=== PATIENT | male | born 1985 | race African-American/Black ===

== ENCOUNTER 2018-07-14 17:02 | Inpatient (IN) | payer OTHER ==
[~2018-07-14] VITALS: Ht 172.7 cm; Wt 83.9 kg
--- NOTE | 2018-07-14 17:02 | NUR ---
[id number] FOR ABDOMIANL PAIN AND DISTENSION X 3 DAYS. ILEOSTOMY NOT DRAINING. TO ER BED 1, CHAGED TO GOWN, HOOKED TO MONITOR, RT AT BEDSIDE, AWAITING MD VALLE
--- NOTE | 2018-07-14 17:16 | NUR ---
CALLED NURSING CALLED REQUESTING PICC LINE
[2018-07-14 17:19] VITALS: BP 137/74
--- NOTE | 2018-07-14 17:20 | NUR ---
PT. RECEIVED AND PLACED INTO [address] [place] [address] VENT VIA TRACH SIZE 8 BIVONA (CUFFLESS), PARAMETERS BELOW PER PRIVATE CAREGIVER: AC 16 VT 500ML FIO2 28% PEEP 0 BREATH SOUNDS COARSE RHONCHI BILATERAL. VENT ALARMS IS ON AND FUNCTIONING WITH KARONG @ BEDSIDE.. Addendum: 07/14/18 at 1753 by CHINO HERNANDEZ RT Amended: Links added.
--- NOTE | 2018-07-14 17:21 | NUR ---
MIKAELA SEXTON AT BEDSIDE
[2018-07-14] MEDS ORDERED: ONDANSETRON HCL/PF 4 MG/2 ML VIAL IVP ONE (17:30)
[2018-07-14] MEDS ORDERED: IV NS 0.9% 500 ML BAG IV ONE (17:30)
[2018-07-14] MEDS ORDERED: HYDROMORPHONE INJ 2 MG/ML DISP.SYRIN IV ONE (17:30)
[2018-07-14] MEDS ORDERED: GABA-532 GT (17:33)
[2018-07-14] MEDS ORDERED: IPRA3AMP23 IH (17:33)
[2018-07-14] MEDS ORDERED: GABA-534 GT (17:33)
[2018-07-14] MEDS ORDERED: SIME80TA15 GT ×2 (17:33)
[2018-07-14] MEDS ORDERED: POTA20PA34 GT (17:33)
[2018-07-14] MEDS ORDERED: MAGN296S44 GT (17:33)
[2018-07-14] MEDS ORDERED: ACET-868 GT (17:33)
[2018-07-14] MEDS ORDERED: DIGO250T GT (17:33)
[2018-07-14] MEDS ORDERED: MAG30ORA GT (17:33)
[2018-07-14] MEDS ORDERED: POLY17PO4 GT (17:33)
[2018-07-14] MEDS ORDERED: BISA10SU8 PR (17:33)
[2018-07-14] MEDS ORDERED: ACID1TAB12 GT (17:33)
[2018-07-14] MEDS ORDERED: DOCU50LI GT (17:33)
[2018-07-14] MEDS ORDERED: METO5SOL GT (17:33)
[2018-07-14] MEDS ORDERED: SUCR1ORA4 GT (17:33)
[2018-07-14] MEDS ORDERED: CLON0.5T GT (17:33)
[2018-07-14] MEDS ORDERED: NA P133E RC (17:33)
[2018-07-14] MEDS ORDERED: DIPH50CA4 GT (17:33)
[2018-07-14] MEDS ORDERED: LORA10TA68 GT (17:33)
[2018-07-14] MEDS ORDERED: MAGN400O6 GT (17:33)
[2018-07-14] MEDS ORDERED: LACT-209 GT (17:33)
[2018-07-14] MEDS ORDERED: BACL10TA GT (17:33)
[2018-07-14] MEDS ORDERED: PROM50TA5 GT (17:33)
[2018-07-14] MEDS ORDERED: METO25TA20 GT (17:33)
[2018-07-14] MEDS ORDERED: HALO5TAB8 GT (17:33)
[2018-07-14] MEDS ORDERED: DILT30TA14 GT (17:33)
[2018-07-14] MEDS ORDERED: ONDANSETRON HCL/PF 4 MG/2 ML VIAL ONE ×2 (17:49→19:56)
[2018-07-14] MEDS ORDERED: HYDROMORPHONE INJ 0.5 MG/0.5 ML SYRINGE ONE (17:49)
[2018-07-14 18:08] LABS: BASOPHILS % (AUTO) 0.2 % (0.0-2.0); EOSINOPHILS % (AUTO) 0.1 % (0.0-6.0); HEMATOCRIT 47 % (39-51); HEMOGLOBIN 15.2 g/dL (13.5-17.5); LYMPHOCYTES # (AUTO) 1.7 /CMM (0.8-4.8); LYMPHOCYTES % (AUTO) 7.7 % (20.0-44.0); MEAN CORPUSCULAR HGB CONC 33 g/dl (31.0-36.0); MEAN CORPUSCULAR VOLUME 89 fL (80-96); MONOCYTES # (AUTO) 0.8 /CMM (0.1-1.30); MONOCYTES % (AUTO) 3.8 % (2.0-12.0); NEUTROPHILS # (AUTO) 19.2 /CMM (1.8-8.9); NEUTROPHILS % (AUTO) 88.2 % (43.0-81.0); PLATELET COUNT (AUTO) 402 /CMM (150-450); RED BLOOD CELL COUNT(AUTO) 5.26 MIL/uL (4.5-6.0); WHITE BLOOD COUNT (AUTO) 21.7 K/uL (4.3-11.0)
[2018-07-14 18:14] LABS: APPEARANCE,URINE Slightly Cloudy (CLEAR); BILIRUBIN,URINE Negative (NEGATIVE); BLOOD, URINE Trace-lysed Ery/uL (NEGATIVE); COLOR,URINE Yellow (YELLOW); KETONES,URINE Trace (NEGATIVE); LEUKOCYTE ESTERASE ,URINE Large (NEGATIVE); NITRITE, URINE Negative (NEGATIVE); PH,URINE 8.5 (5.0-8.0); PROTEIN,URINE 100 mg/dl (NEGATIVE); UGLUCOSE Negative (NEGATIVE); UROBILINOGEN,URINE 0.2 EU/dL (0.2)
[2018-07-14 18:15] LABS: CREATININE 0.3 mg/dL (0.6-1.3); POTASSIUM 5.9 mmol/L (3.5-5.1)
[2018-07-14 18:21] LABS: ALBUMIN 4.4 g/dL (3.4-5.0); BILIRUBIN,DIRECT 0.1 mg/dL (0.0-0.2); BILIRUBIN,TOTAL 0.8 mg/dL (0.2-1.0); TOTAL PROTEIN, SERUM 10.7 g/dL (6.4-8.2)
[2018-07-14 18:27] LABS: BACTERIA,URINE Moderate /HPF (None Seen); MUCUS,URINE Moderate /LPF (None Seen); SQUAMOUS EPITHELIAL CELL,UR Moderate /HPF (None Seen); WBC,URINE 21-50 /HPF (0-3)
[2018-07-14] MEDS ORDERED: SODIUM POLYSTYRENE SULFONATE 15 G/60 ML BOTTLE PO ONE (18:30)
[2018-07-14] MEDS ORDERED: SODIUM POLYSTYRENE SULFONATE 15 G/60 ML BOTTLE ONE ×2 (18:35→18:39)
[2018-07-14] MEDS ORDERED: IV NS 0.9% 1,000 ML BAG IV ONE (19:00)
[2018-07-14] MEDS ORDERED: PIPERACILLIN /TAZOBACTAM 3.375 G in IV D5W 50 ML IV ONE (19:00)
--- NOTE | 2018-07-14 19:28 | NUR ---
REPORT GIVEN TO ENRIKE GUADARRAMA FOR MARY
--- NOTE | 2018-07-14 19:45 | NUR ---
Pt feeling nausea, unrelieved from medication.
--- NOTE | 2018-07-14 20:00 | NUR ---
Pt having nausea, Pt vomitted x 2 times. ER PA aware.
--- NOTE | 2018-07-14 20:15 | NUR ---
Pt having nausea, Pt vomitted x 2 times. ER PA aware.
--- NOTE | 2018-07-14 20:35 | NUR ---
Pt taken to CT.
--- NOTE | 2018-07-14 20:50 | NUR ---
Pt returned from CT. Pt being monitored.
--- NOTE | 2018-07-14 20:55 | NUR ---
Consent obtained for PICC LINE.
--- NOTE | 2018-07-14 21:00 | NUR ---
PICC line nurse at bedside for PICC line insertion.
[2018-07-14 21:05] VITALS: BP 174/124
--- NOTE | 2018-07-14 21:05 | NUR ---
3200 ml output from the NG tube, while being attached to the intermittent suction
--- NOTE | 2018-07-14 21:45 | NUR ---
NG tube Placement 16FR at 63 cm.
[2018-07-14] MEDS ORDERED: ACETAMINOPHEN 325 MG TABLET PO PRN (22:00)
[2018-07-14] MEDS ORDERED: HYDROCODONE/APAP 5/325MG 1 EACH TABLET PO PRN (22:00)
[2018-07-14] MEDS ORDERED: ONDANSETRON HCL/PF 4 MG/2 ML VIAL IVP PRN (22:00)
[2018-07-14] MEDS ORDERED: Z GUARD REMEDY 2 OZ OINT TP PRN (22:00)
[2018-07-14] MEDS ORDERED: ZOLPIDEM TARTRATE 5 MG TABLET PO PRN (22:00)
--- NOTE | 2018-07-14 22:00 | NUR ---
PICC Line inserted in L brachial at 40cm.
--- NOTE | 2018-07-14 22:15 | NUR ---
Xray at bedside for picc line insertions and ng-tube placement on confirmation.
--- NOTE | 2018-07-14 22:45 | NUR ---
Surgeon at bedside to eval colostomy bag, and eviseration of the bowel.
--- NOTE | 2018-07-14 23:15 | NUR ---
Pt being monitored. NAD NOTED.
--- NOTE | 2018-07-14 23:35 | NUR ---
Report given to Myrna GUADARRAMA JOSEY for MARY.
[2018-07-15] VITALS: BP 161/101
--- NOTE | 2018-07-15 | NUR ---
RN NOTES RECEIVED PATIENT ON GURNEY , A/A/OX4. TRACH DEPENDANT WITH SPO2 OF 100%. PT PLACED ON FINANCE BUSINESS MANAGER AND ST. IV LINE ON LEFT UPPER ARM PICC LINE IS PATIENT , INTACT WITH IV FLUIDS ORDERED. MARIE CATHETER IN PLACE WITH YELLOW CLEAR URINE. RIGHT SIDE ILEOSTOMY NOTED AND PROTRUDING. G TUBE IN PLACE CLAMPED. LEFT NARES NGT IN PLACE ON LOW INTERMITTENT SUCTION. PATIENT IS NPO. PT COMPLAINS OF PAIN IN BOTH LEGS. SKIN ASSESSMENT IS DONE, NO SOB NOTES AT THIS TIME. WILL CONTINUE TO MONITOR PATIENT CLOSELY.
--- NOTE | 2018-07-15 00:05 | NUR ---
RN NOTES STAT CBC RESULTS ARE READY AND KATHRINE NOTIFIED. REPEAT CBC WILL BE ORDERED AT 0200 BY DELGADO.
[2018-07-15] MEDS ORDERED: PIPERACILLIN /TAZOBACTAM 3.375 G in IV D5W 50 ML IV SCH (01:00)
[2018-07-15] MEDS ORDERED: NS 0.9% IV ONE (01:30)
[2018-07-15] MEDS ORDERED: VANCOMYCIN IV ONE (01:30)
[2018-07-15] MEDS ORDERED: PIPERACILLIN /TAZOBACTAM 3.375 G VIAL IV ONE ×2 (01:55→06:31)
[2018-07-15] MEDS: PIPERACILLIN /TAZOBACTAM 3.375 G in IV D5W 50 ML IV SCH ×2 (02:02→06:42)
[2018-07-15] MEDS: HYDROMORPHONE 1 MG/1 ML DISP.SYRIN IV PRN ×3 (02:03→21:43)
[2018-07-15] MEDS ORDERED: VANCOMYCIN 1 GM VIAL ONE (02:15)
[2018-07-15] MEDS ORDERED: VANCOMYCIN 1.25 GM in IV D5W 250 ML IV ONE (03:00)
[2018-07-15 04:00] VITALS: BP 103/50
[2018-07-15 07:06] LABS: BASOPHILS % (AUTO) 0.1 % (0.0-2.0); EOSINOPHILS % (AUTO) 0.1 % (0.0-6.0); HEMATOCRIT 34 % (39-51); HEMOGLOBIN 11.1 g/dL (13.5-17.5); LYMPHOCYTES # (AUTO) 1.1 /CMM (0.8-4.8); LYMPHOCYTES % (AUTO) 9.6 % (20.0-44.0); MEAN CORPUSCULAR HGB CONC 33 g/dl (31.0-36.0); MEAN CORPUSCULAR VOLUME 88 fL (80-96); MONOCYTES # (AUTO) 0.9 /CMM (0.1-1.30); MONOCYTES % (AUTO) 7.8 % (2.0-12.0); NEUTROPHILS # (AUTO) 9.5 /CMM (1.8-8.9); NEUTROPHILS % (AUTO) 82.4 % (43.0-81.0); PLATELET COUNT (AUTO) 273 /CMM (150-450); RED BLOOD CELL COUNT(AUTO) 3.86 MIL/uL (4.5-6.0); WHITE BLOOD COUNT (AUTO) 11.6 K/uL (4.3-11.0)
--- NOTE | 2018-07-15 07:10 | NUR ---
RN INITIAL NOTES RECEIVED PT AWAKE, A/OX 2-3. TRACH IN PLACE. TOLERATING VENT WELL. NO RESPIRATORY DISTRESS NOTED. NO SOB NOTED. DENIES ANY PAIN. HOB ELEVATED. NGT, LEFT NARE, CONNECTED TO LOW INTERMITTENT SUCTION. BERNA PICC IN PLACE. IVF INFUSING. WITH RIGHT ILEOSTOMY, BAG INTACT. FC IN PLACE. NO HEMATURIA NOTED. PT COMFORTABLE. WILL CONTINUE TO MONITOR.
[2018-07-15 07:18] LABS: CALCIUM, SERUM 8.8 mg/dL (8.5-10.1); CREATININE 0.3 mg/dL (0.6-1.3); MAGNESIUM 2.1 mg/dL (1.8-2.4); PHOSPHORUS 3.8 mg/dL (2.5-4.9)
[2018-07-15 07:30] LABS: POTASSIUM 2.7 mmol/L (3.5-5.1)
--- NOTE | 2018-07-15 07:50 | NUR ---
RT NOTE PT REC'D TRACHED VIA BIVONA 6 [facility]DE. ALTHOUGH TRACH IS CUFFLESS PT STILL ABLE TO MAINTAIN ADEQUATE TIDAL VOLUME. PT ALERT AND AWAKE. NO RESP DISTRESS OR SOB NOTED. SX'D FOR SMALL AMT OF CLEAR SECRETIONS. ALARMS ARE SET AND AUDIBLE. VENT PLUGGED INTO RED OUTLET. AMBU BAG BEDSIDE. WILL CONTINUE TO MONITOR Addendum: 07/15/18 at 1317 by MOISE REDDY RT Amended: Links added.
[2018-07-15 08:00] VITALS: BP 115/56
[2018-07-15] MEDS ORDERED: FEE PK DOSING 1 MIN EA MC ONE (08:49)
[2018-07-15] MEDS: POTASSIUM CL. PREMIX PERIPHER. 50 ML IV SCH ×4 (09:35→12:56)
--- NOTE | 2018-07-15 10:09 | NUR ---
WOUND CARE CONSULT: PT PRESENTS WITH PROLAPSED ILEOSTOMY. PT FOLLOWED BY SURGICAL TEAM. ALL SKIN PROTECTION RECOMMENDATIONS DISCUSSED WITH NURSING STAFF. WILL SEE PRN. CURRENT CHRIS SCORE IS 12. FIRST STEP LOW AIRLOSS MATTRESS ORDERED. MD IN AGREEMENT WITH PLAN OF CARE.
[2018-07-15] MEDS: PIPERACILLIN /TAZOBACTAM 3.375 G in IV D5W 100 ML IV SCH ×2 (11:19→20:28)
[2018-07-15 12:00] VITALS: BP 123/85
[2018-07-15] MEDS: VANCOMYCIN 1 GM in IV D5W 250 ML IV SCH ×2 (12:25→21:43)
--- NOTE | 2018-07-15 13:25 | NUR ---
RN NOTES SEEN AND EXAMINED BY SATYA GARCIA NP.PT A/O. PT ON VENT. NO RESPIRATORY DISTRESS NOTED. NURSE TECHNICIAN AWARE OF CURRENT LAB VALUES. POTASSIUM 2.7, REPLACED. AWARE OF HGBA1C 6.5. ALSO AWARE OF CXR RESULT. WILL MONITOR.
[2018-07-15] MEDS: IV NS 0.9% 1,000 ML IV PRN (13:50)
[2018-07-15] MEDS ORDERED: DEXTROSE 50%-WATER 50 ML DISP.SYRIN IV PRN (14:30)
[2018-07-15 16:00] VITALS: BP 121/64
--- NOTE | 2018-07-15 16:00 | NUR ---
RN NOTES SEEN AND EXAMINED BY BREANNA SPAULDING. ASSESSED ILEOSTOMY PROLAPSE. PT NGT IN PLACE, CONNECTED TO LOW INTERMITTENT SUCTION. GREENISH OUTPUT NOTED, 300ML. ABDOMINAL DISTENTION STILL NOTED. PER SKIAGRAPHER, HOLD NGT SUCTION FOR 4HRS. IF OUTPUT IS LESS THAN 150ML, REMOVE NGT AND START ON LIQUID DIET. IF OUTPUT IS MORE THAN 150ML, RESUME LOW INTERMITTENT SUCTION. PT AWARE. WILL MONITOR
--- NOTE | 2018-07-15 16:36 | NUR ---
Spoke with Ana [phone]- director of the [facility]. [phone] address: [address] [place] [address]. He has family/siblings out of state. Ana is the primary contact for the patient. He is trach/vent dependent and has hx of Duchenne's muscular dystrophy. He is confined to chair or bed most of the time. He requires max to total assist with adl's. Has adequate DME: trach/vent & GT care supplies, ileostomy care supplies,hosp bed, O2. Ana will accept patient back when discharge. Addendum: 07/15/18 at 1636 by IMER CALABRESE RN Amended: Links added.
[2018-07-15] MEDS: BLOOD SUGAR DIAGNOSTIC 1 EACH STRIP IN SCH (17:25)
--- NOTE | 2018-07-15 18:27 | NUR ---
RN CLOSING NOTES NO SIGNIFICANT CHANGE NOTED. PT REMAINS ON CENT, TRACH IN PLACE. KEPT HOB ELEVATED. DENIES ANY PAIN. NGT IN PLACE, CLAMPED. PICC IN PLACE. IVF INFUSING. RIGHT ILEOSTOMY BAG IN PLACE. FC IN PLACE. PT KEPT CLEAN AND DRY. REPOSITIONED Q2. BLE ELEVATED. WILL ENDORSE FOR CONTINUITY OF CARE.
[2018-07-15 20:00] VITALS: BP 130/70
--- NOTE | 2018-07-15 20:00 | NUR ---
RN NOTES RECEIVED PATIENT REPORT FROM AM NURSE. PATIENT IS IN BED , A/A/OX4, ON TRACH TOLERATING SETTINGS WELL. HOB ELEVATED AT ALL TIMES. COMPLAINS OF 8/10 BOTH LEGS PAIN. NGT IN PLACE, CLAMPED, WILL RESTART LOW INTERMITTENT SUCTIONING AT 2000, PICC IN PLACE. IVF INFUSING. G TUBE IN PLACE CLAMPED. PATIENT IS ON BODY LINE FINISHER ST. RIGHT ILEOSTOMY BAG IN PLACE. FC IN PLACE. BLE ELEVATED. WILL CONTINUE TO MONITOR PATIENT CLOSELY.
[2018-07-15 22:44] LABS: BASOPHILS % (AUTO) 0.1 % (0.0-2.0); EOSINOPHILS % (AUTO) 0.5 % (0.0-6.0); HEMATOCRIT 34 % (39-51); HEMOGLOBIN 11.2 g/dL (13.5-17.5); LYMPHOCYTES # (AUTO) 0.5 /CMM (0.8-4.8); LYMPHOCYTES % (AUTO) 4.1 % (20.0-44.0); MEAN CORPUSCULAR HGB CONC 33 g/dl (31.0-36.0); MEAN CORPUSCULAR VOLUME 88 fL (80-96); MONOCYTES # (AUTO) 1.6 /CMM (0.1-1.30); MONOCYTES % (AUTO) 12.4 % (2.0-12.0); NEUTROPHILS # (AUTO) 10.3 /CMM (1.8-8.9); NEUTROPHILS % (AUTO) 82.9 % (43.0-81.0); PLATELET COUNT (AUTO) 223 /CMM (150-450); RED BLOOD CELL COUNT(AUTO) 3.91 MIL/uL (4.5-6.0); WHITE BLOOD COUNT (AUTO) 12.5 K/uL (4.3-11.0)
--- NOTE | 2018-07-15 23:10 | NUR ---
RN NOTES PATIENT INTERMITTENT SUCTIONED SECRETIONS ARE COFFEE GROUNDED 300ML OUT SINCE 1999 AND HR IS 126. PATIENT IS A/A/O X4. CALLED KATHRINE TO NOTIFY AND STAT CBC ORDERED FOR NOW. WILL CONT. TO MONITOR PATIENT CLOSELY.
[2018-07-16] VITALS (12 sets, daily range): BP systolic 105–135; BP diastolic 45–72
[2018-07-16] MEDS: BLOOD SUGAR DIAGNOSTIC 1 EACH STRIP IN SCH ×4 (01:06→17:14)
[2018-07-16] MEDS: HYDROMORPHONE 1 MG/1 ML DISP.SYRIN IV PRN ×6 (02:07→23:31)
[2018-07-16 02:20] LABS: BASOPHILS # (AUTO) 0.1 /CMM (0.0-0.2); BASOPHILS % (AUTO) 0.5 % (0.0-2.0); EOSINOPHILS % (AUTO) 0.4 % (0.0-6.0); HEMATOCRIT 33 % (39-51); HEMOGLOBIN 10.9 g/dL (13.5-17.5); LYMPHOCYTES % (AUTO) 7.7 % (20.0-44.0); MEAN CORPUSCULAR HGB CONC 33 g/dl (31.0-36.0); MEAN CORPUSCULAR VOLUME 88 fL (80-96); MONOCYTES # (AUTO) 1.8 /CMM (0.1-1.30); MONOCYTES % (AUTO) 14.7 % (2.0-12.0); NEUTROPHILS # (AUTO) 9.7 /CMM (1.8-8.9); NEUTROPHILS % (AUTO) 76.7 % (43.0-81.0); PLATELET COUNT (AUTO) 238 /CMM (150-450); RED BLOOD CELL COUNT(AUTO) 3.79 MIL/uL (4.5-6.0); WHITE BLOOD COUNT (AUTO) 12.6 K/uL (4.3-11.0)
[2018-07-16 03:25] LABS: BASOPHILS # (AUTO) 0.1 /CMM (0.0-0.2); BASOPHILS % (AUTO) 0.4 % (0.0-2.0); EOSINOPHILS % (AUTO) 0.6 % (0.0-6.0); HEMATOCRIT 33 % (39-51); HEMOGLOBIN 10.6 g/dL (13.5-17.5); LYMPHOCYTES # (AUTO) 0.9 /CMM (0.8-4.8); LYMPHOCYTES % (AUTO) 7.9 % (20.0-44.0); MEAN CORPUSCULAR HGB CONC 32 g/dl (31.0-36.0); MEAN CORPUSCULAR VOLUME 88 fL (80-96); MONOCYTES # (AUTO) 1.6 /CMM (0.1-1.30); MONOCYTES % (AUTO) 13.1 % (2.0-12.0); NEUTROPHILS # (AUTO) 9.3 /CMM (1.8-8.9); PLATELET COUNT (AUTO) 231 /CMM (150-450); RED BLOOD CELL COUNT(AUTO) 3.74 MIL/uL (4.5-6.0)
[2018-07-16 03:35] LABS: CREATININE 0.3 mg/dL (0.6-1.3)
[2018-07-16] MEDS: IV NS 0.9% 1,000 ML IV PRN ×2 (04:35→23:31)
[2018-07-16] MEDS: PIPERACILLIN /TAZOBACTAM 3.375 G in IV D5W 100 ML IV SCH ×3 (04:36→20:50)
[2018-07-16] MEDS: VANCOMYCIN 1 GM in IV D5W 250 ML IV SCH (05:00)
--- NOTE | 2018-07-16 05:04 | NUR ---
RN NOTES VANCO TROUGH IS 49 AND I WILL BE HOLDING VANCOMYCIN SCHEDULED AT 0500.
--- NOTE | 2018-07-16 06:34 | NUR ---
RN NOTES GOT A CALL FROM LAB. 1 UNIT OF pRBC IS READY FOR transfusion.
--- NOTE | 2018-07-16 07:00 | NUR ---
RN NOTES GOT A CALL FROM SURGERY ABOUT PATIENT BEING READY FOR HD CATH PLACEMENT AND HAS BEEN INFORMED THAT PATIENT DIDN'T AL CONSENT FORMS FOR PROCEDURE AND SAID " NO ONE CAME TO TALK TO ME ABOUT THIS PROCEDURE AND I HAVE NO IDEA WHY I AM HAVING HD CATH PLACEMENT". SURGERY SAID THAT ONCE DOCTOR COMES HE WILL COME AND TALK TO THE PATIENT. AM STRAND BUNCHER FINE WIRE ANN AND PM STRAND BUNCHER FINE WIRE JANETTE NOTIFIED. CALLED MD YEBOAH WITH NO ANSWER. WILL ENDORSE TO THE AM RN FOR INSURANCE CLAIM AUDITOR. Addendum: 07/16/18 at 0741 by MIGUE CASTILLO RN DISREGARD THIS NOTE , WRONG PATIENT.
--- NOTE | 2018-07-16 07:05 | NUR ---
RN NOTES RECEIVED PATIENT ON BED , A/OX4, VENT/TRACH DEPENDENT, TOLERATING CURRENT VENT SETTINGS WELL. HOB ELEVATED AT ALL TIMES. NO SOB NOTED, ON TELE ST, HR IN 110'S , NGT IN PLACE TO LIS , WITH SMALL AMOUNT OF LIGHT BLOODY DRAINAGE , GT CLAMPED AT THIS TIME, MARIE DRAINING TO GRAVITY , PT IS NPO, L UPPER ARM PICC LINE SITE CLEAN,DRY AND INTACT, WITH NS AT 100CC/HR RUINING , RIGHT ILEOSTOMY BAG IN PLACE. SR UP x3, CALL LIGHT WITHIN EASY REACH, BED LOCKED AND IN LOWEST POSITION .
[2018-07-16] MEDS: PANTOPRAZOLE 40 MG VIAL IV SCH ×2 (08:44→20:51)
[2018-07-16] MEDS: POTASSIUM CL. PREMIX PERIPHER. 50 ML IV SCH ×6 (11:46→17:15)
--- NOTE | 2018-07-16 12:00 | NUR ---
RN NOTES ONE UNIT OF PRBC INFUSED , PT TOLERATED WELL, NO COMPLICATION NOTED .
--- NOTE | 2018-07-16 18:00 | NUR ---
RN NOTES PT REMAINS THE SAME , NO SIGNIFICANT CHANGES NOTED ON THIS SHIFT, GT STILL CLAMP , NGT CONNECTED TO LIS , WITH 350 CC BLOODY STOMACH FLUID DRINING , AWARE , SR UP x3, CALL LIGHT WITHIN EASY REACH , BED LOCKED AND IN LOWEST POSITION, CONTINUE TO MONITOR .
--- NOTE | 2018-07-16 20:00 | NUR ---
RN NOTES RECEIVED PATIENT ON BED , A/OX4, VENT/TRACH DEPENDENT, TOLERATING CURRENT VENT SETTINGS WELL. HOB ELEVATED AT ALL TIMES. NO SOB NOTED, ON TELE ST, HR IN 110'S , NGT IN PLACE TO LIS , WITH SMALL AMOUNT OF BLOODY DRAINAGE , GT CLAMPED AT THIS TIME, MARIE DRAINING TO GRAVITY , PT IS NPO, L UPPER ARM PICC LINE SITE CLEAN,DRY AND INTACT, WITH NS AT 100CC/HR RUINING , RIGHT ILEOSTOMY BAG IN PLACE. PATIENT IS COMPLAINING OF PAIN 6/10 AT THIS TIME. SR UP x3, CALL LIGHT WITHIN EASY REACH, BED LOCKED AND IN LOWEST POSITION .
[2018-07-16] MEDS ORDERED: VANCOMYCIN 0.75 GM in IV D5W 250 ML IV SCH (21:00)
[2018-07-17] VITALS: BP 135/68
[2018-07-17] MEDS: BLOOD SUGAR DIAGNOSTIC 1 EACH STRIP IN SCH ×4 (00:20→19:11)
[2018-07-17] MEDS: HYDROMORPHONE 1 MG/1 ML DISP.SYRIN IV PRN ×5 (02:34→21:45)
--- NOTE | 2018-07-17 03:00 | NUR ---
RN NOTES STILL NGT IS CONNECTED TO LIS AND DRAINING DARK BLOODY SECRETIONS .
[2018-07-17 04:00] VITALS: BP 121/47
[2018-07-17] MEDS: PIPERACILLIN /TAZOBACTAM 3.375 G in IV D5W 100 ML IV SCH ×2 (04:50→11:56)
--- NOTE | 2018-07-17 07:30 | NUR ---
TOWER WATCHMAN OPENING NOTES RECEIVED BEDSIDE REPORT. PATIENT A/O X4 AWAKE IN BED. ON VENT TOLERATING SETTINGS WITH SIGNS OR SYMPTOMS OF RESPIRATROY DISTRESS OR ACUTE PAIN AT THIS TIME. SINUS TACH IN 100'S ON MONITOR. MARIE CATH DRAINING CLEAR YELLOW URINE NG TUBE ON CONT SUCTION WITH MODERATE DRAINAGE GT CLAMPED. BERNA RUNNING 9% NS @ 100 ML/HR. RIGHT THUMB # 24 SL. SAFETY PRECAUTIONS IN PLACE BED IN LOW POSITION CALL LIGHT WITHIN REACH WILL CONT TO MONITOR
[2018-07-17 07:53] LABS: BASOPHILS # (AUTO) 0.1 /CMM (0.0-0.2); BASOPHILS % (AUTO) 0.4 % (0.0-2.0); EOSINOPHILS % (AUTO) 0.8 % (0.0-6.0); HEMATOCRIT 35 % (39-51); HEMOGLOBIN 10.9 g/dL (13.5-17.5); LYMPHOCYTES # (AUTO) 0.9 /CMM (0.8-4.8); LYMPHOCYTES % (AUTO) 7.3 % (20.0-44.0); MEAN CORPUSCULAR HGB CONC 32 g/dl (31.0-36.0); MEAN CORPUSCULAR VOLUME 90 fL (80-96); MONOCYTES # (AUTO) 1.1 /CMM (0.1-1.30); MONOCYTES % (AUTO) 9.1 % (2.0-12.0); NEUTROPHILS # (AUTO) 10.1 /CMM (1.8-8.9); NEUTROPHILS % (AUTO) 82.4 % (43.0-81.0); PLATELET COUNT (AUTO) 197 /CMM (150-450); RED BLOOD CELL COUNT(AUTO) 3.84 MIL/uL (4.5-6.0); WHITE BLOOD COUNT (AUTO) 12.3 K/uL (4.3-11.0)
[2018-07-17 08:00] VITALS: BP 129/49
[2018-07-17 08:15] LABS: CALCIUM, SERUM 7.5 mg/dL (8.5-10.1); CREATININE 0.4 mg/dL (0.6-1.3); MAGNESIUM 2.2 mg/dL (1.8-2.4); PHOSPHORUS 4.6 mg/dL (2.5-4.9)
[2018-07-17] MEDS ORDERED: ALTEPLASE CATHFLO 2 MG/VIAL XX ONE ×2 (08:30)
[2018-07-17] MEDS: PANTOPRAZOLE 40 MG VIAL IV SCH ×2 (08:40→21:12)
[2018-07-17 12:00] VITALS: BP 124/69
--- NOTE | 2018-07-17 15:30 | NUR ---
REHAB OFFICE COORDINATOR NOTES TRANSPORTED PATIENT TO CT WITH RT
[2018-07-17] MEDS ORDERED: DIATR MEGLU/DIATRIZOATE SODIUM 120 ML BOTTLE (GASTROGRAPHIN) ONE ×2 (15:33→16:16)
[2018-07-17 16:00] VITALS: BP_SYST 105; BP_SYST 137; BP_DIAS 44; BP_DIAS 52
--- NOTE | 2018-07-17 18:00 | NUR ---
WIRELESS TELEGRAPHER NOTES PATIENT RETURNED FROM CT
--- NOTE | 2018-07-17 19:19 | NUR ---
APPLIANCE REPAIRER NOTES NEW PICC LINE INSERTED DOUBLE LUMEN (L) BRACHIAL WAITING FOR X RAY TO CONFIRM PLACEMENT
--- NOTE | 2018-07-17 19:49 | NUR ---
SENIOR STRATEGY MANAGER NOTES REPORT GIVEN TO PIETER. A/O X4 NO SOB CHRONIC PAIN REQUESTING DILAUDID ALL SHIFT. ILEOSTOMY BAG DRAINED 900ML BROWN LIQUID STOOL. MAIRE DRAINING CLEAR YELLOW URINE. SKIN INTACT NEW PICC LINE PLACE. WILL ENDORSE TO NOC
[2018-07-17 20:00] VITALS: BP 142/60
--- NOTE | 2018-07-17 20:00 | NUR ---
BELLOWS TESTER NOTE PT IN BED AWAKE. A/O X 4, ON VENT/TRACH TOLERATING THE SETTINGS WELL. NO SOB, NO DISTRESS OR DISCOMFORT NOTED. ON TELE MONITOR S T HR 125. LT NARES WITH NGT CLAMPED AT THIS TIME. XRAY TAKEN FOR BERNA PICC LINE, PER RADIOLOGY IT IS OK TO USE. ALSO ACCORDING TO THEM DON'T START SUCTIONING YET, WATING FOR SB SERIES RESULT. ILEOSTOMY BAG CHANGED NOTED WITH 200 DARK BROWNISH COLOR LIQUID STOOL. F/C INTACT AND PATENT DRAINING YELLOWISH COLOR URINE. GT INTACT AND PATENT IS CLAMPED. RT THUMB SL #24 G INTACT AND PATENT. SIDE RAILS UP X 3 AND CALL LIGHT WITHIN REACH. KEPT HOB ELEVATED. VSS. CONTINUE TO MONITOR HIM
[2018-07-17] MEDS: CEFTAZIDIME 1 G in IV D5W 50 ML IV SCH (21:12)
[2018-07-17] MEDS: METRONIDAZOLE 500MG/ NS 100ML 500 MG in PREMIX 1 EA IV SCH (21:41)
--- NOTE | 2018-07-17 22:09 | NUR ---
DATA PROCESSING OPERATOR NOTE RADIOLOGY CALLED BACK AND INFORMED ME THAT IT IS OK TO RESTART LOW INTERMITTENT SUCTIONING. RESUMED SUCTIONING.
[2018-07-17] MEDS: VANCOMYCIN 0.75 GM in IV D5W 250 ML IV SCH (23:44)
[2018-07-18] VITALS: BP 152/86
[2018-07-18] MEDS: BLOOD SUGAR DIAGNOSTIC 1 EACH STRIP IN SCH ×4 (00:03→18:14)
[2018-07-18] MEDS: HYDROMORPHONE 1 MG/1 ML DISP.SYRIN IV PRN ×5 (00:13→21:13)
[2018-07-18] MEDS: IV NS 0.9% 1,000 ML IV PRN (01:12)
[2018-07-18 04:00] VITALS: BP 145/84
[2018-07-18] MEDS: CEFTAZIDIME 1 G in IV D5W 50 ML IV SCH ×3 (04:11→20:19)
[2018-07-18] MEDS: METRONIDAZOLE 500MG/ NS 100ML 500 MG in PREMIX 1 EA IV SCH ×2 (04:37→12:25)
[2018-07-18 06:38] LABS: BASOPHILS % (AUTO) 0.1 % (0.0-2.0); HEMATOCRIT 36 % (39-51); HEMOGLOBIN 11.5 g/dL (13.5-17.5); LYMPHOCYTES # (AUTO) 0.9 /CMM (0.8-4.8); LYMPHOCYTES % (AUTO) 6.4 % (20.0-44.0); MEAN CORPUSCULAR HGB CONC 32 g/dl (31.0-36.0); MEAN CORPUSCULAR VOLUME 90 fL (80-96); MONOCYTES # (AUTO) 0.9 /CMM (0.1-1.30); MONOCYTES % (AUTO) 6.7 % (2.0-12.0); NEUTROPHILS # (AUTO) 11.9 /CMM (1.8-8.9); NEUTROPHILS % (AUTO) 86.8 % (43.0-81.0); PLATELET COUNT (AUTO) 247 /CMM (150-450); RED BLOOD CELL COUNT(AUTO) 4.02 MIL/uL (4.5-6.0); WHITE BLOOD COUNT (AUTO) 13.7 K/uL (4.3-11.0)
--- NOTE | 2018-07-18 06:40 | NUR ---
UNIT TRUST MANAGER NOTE PT IN BED ASLEEP, AROUSABLE. NO DISTRESS OR DISCOMFORT NOTED. DENIES PAIN AT THIS TIME. TOLERATING VENT SETTINGS WELL. ON TELE SR 75. PT ON LIS NGT DRAINING BROWNISH COLOR SECRETIONS. F/C INTACT AND PATENT DRAINING YELLOWISH COLOR URINE. ALSO ILEOSTOMY BAG INTACT AND DRAINING DARK GREENISH COLOR FLUID. GT CLAMPED. PAIN MEDICATIONS GIVEN DURING THE SHIFT. REPOSITION HIM Q2H, KEPT HIM DRY AND CLEAN. ALL NEEDS ATTENDED. WILL ENDORSE TO DAY SHIFT NURSE FOR CONTINUE TO CARE.
[2018-07-18 06:41] LABS: CALCIUM, SERUM 7.9 mg/dL (8.5-10.1); CREATININE 0.4 mg/dL (0.6-1.3)
--- NOTE | 2018-07-18 06:50 | NUR ---
DISPLAY MANAGER NOTE PT IN BED ASLEEP, AROUSABLE. NO DISTRESS OR DISCOMFORT NOTED. DENIES PAIN. KEPT HIM DRY AND CLEAN. ON TELE MONITOR SR WITH INVERTED T WAVE HR 79. BILATERAL SOFT WRIST RESTRAINT ON. SIDE RAILS UP X 2 AND CALL LIGHT WITHIN REACH. WILL ENDORSE TO DAY SHIFT NURSE FOR CONTINUE TO CARE.
--- NOTE | 2018-07-18 07:35 | NUR ---
FIREWALL SECURITY ENGINEER OPENING NOTES RECEIVED BEDSIDE REPORT. PATIENT A/O X4 AWAKE IN BED. ON VENT TOLERATING SETTINGS WITH SIGNS OR SYMPTOMS OF RESPIRATORY DISTRESS OR ACUTE PAIN AT THIS TIME. SINUS TACH IN 100'S ON MONITOR. MARIE CATH DRAINING CLEAR YELLOW URINE NG TUBE ON CONT SUCTION WITH MODERATE DRAINAGE GT CLAMPED. BERNA RUNNING 9% NS @ 100 ML/HR. RIGHT THUMB # 24 SL. SAFETY PRECAUTIONS IN PLACE BED IN LOW POSITION CALL LIGHT WITHIN REACH WILL CONT TO MONITOR
[2018-07-18 08:00] VITALS: BP 144/87
[2018-07-18] MEDS: PANTOPRAZOLE 40 MG VIAL IV SCH ×2 (08:36→20:20)
[2018-07-18] MEDS: POTASSIUM CL. PREMIX PERIPHER. 50 ML IV SCH ×6 (09:47→18:28)
[2018-07-18 12:00] VITALS: BP 155/85
[2018-07-18] MEDS: IV 1/2NS 1000 ML 1,000 ML IV PRN ×2 (13:25→23:30)
--- NOTE | 2018-07-18 14:00 | NUR ---
PIPELINE TECHNICIAN NOTES MADE ROUNDS. PT IS COMPLAINING OF LEG PAIN 01/28. ADMINISTERED DILAUDID. REASSESSED AND PAIN WENT DOWN TO 07/31. POTASSIUM IV STILL RUNNING. 06/22 NS 100ML/HR RUNNING PER MD ORDER. FC ON GRAVITY WITH CLEAR AND YELLOW URINE. PT ON VENT NO SOB NO DIFF BREATHING. BED ON LOWEST POSITION. CALL LIGHT WITHIN REACH. WILL CONT TO MONITOR.
--- NOTE | 2018-07-18 15:57 | NUR ---
RT NOTE: PT. 33 Y OLD MALE RECEIVE'D @0700 PT. AWAKE AND ALERT, TRACH BIVONA # 6 CUFLESS ON VENT. WITH NOTED SETTINGS, NO RESP DISTRESS NOTED. PT TOLERATING VENT SETTINGS. EQUAL CHEST RISE NOTED. SX'D FOR MODERATE AMT OF THICK YELLOW SECRETIONS. VENT ALARMS SET AND AUDIBLE. AMBU BAG AT BEDSIDE. VENT PLUGGED INTO RED OUTLET. TRACH IS SECURE, CUFF PAPER BAG PRESS OPERATOR. WILL CONTINUE TO MONITOR. REPORT WILL PASS TO PM SHIFT. Addendum: 07/18/18 at 1559 by CHRIST CHEN RT Amended: Links added.
[2018-07-18 16:00] VITALS: BP_SYST 127; BP_SYST 153; BP_DIAS 73; BP_DIAS 94
--- NOTE | 2018-07-18 16:00 | NUR ---
ORTHOTICS PROSTHETICS TECHNICIAN NOTES HELD NGT AT 1600 PER MD ORDER.
--- NOTE | 2018-07-18 16:20 | NUR ---
CALENDER ROLL PRESS OPERATOR NOTES CHELLY GUADARRAMA TRAUMA THERAPIST ORDERED FOR A CLEAR LIQUID DIET FOR THE PATIENT STARTING DINNER. ALSO TO REMOVE THE NGT.
--- NOTE | 2018-07-18 19:07 | NUR ---
RESEARCH LABORATORY SPECIALIST CLOSING NOTES REPORT GIVEN TO PIETER RN. A/O X4 NO SOB. CHRONIC PAIN ON LEG REQUESTED DILAUDID 2X DURING AM SHIFT. CHANGED THE ILEOSTOMY BAG. DRAINED 300ML BROWN LIQUID STOOL. MARIE DRAINING CLEAR YELLOW URINE. SKIN INTACT. GAVE 6 BAGS OF POTASSIUM IV. PATIENT NOW ON CLEAR LIQUID DIET. NGT REMOVED PER MD ORDER. BED ON LOWEST POSITION. CALL LIGHT WITHIN REACH.
--- NOTE | 2018-07-18 19:49 | NUR ---
CONSULTING SYSTEMS ENGINEER NOTE PT IN BED AWAKE. A/O X 4, ON VENT/TRACH TOLERATING THE SETTINGS WELL. NO SOB, NO DISTRESS OR DISCOMFORT NOTED. ON TELE MONITOR ST/SR HR 102. ILEOSTOMY BAG INTACT AND PATENT DRAINING BROWNISH COLOR FLUID, F/C INTACT AND PATENT DRAINING YELLOWISH COLOR URINE. GT INTACT AND PATENT IS CLAMPED. RT THUMB SL #24 G INTACT AND PATENT. BERNA PICC LINE INFUSING 1/2 NS AT 100 ML/HR, NO S/S OF INFILTRATION NOTED. SIDE RAILS UP X 3 AND CALL LIGHT WITHIN REACH. KEPT HOB ELEVATED. VSS. REPOSITION HIM FOR SKIN MANAGEMENT AND COMFORT. CONTINUE TO MONITOR HIM.
[2018-07-18 20:00] VITALS: BP 148/81
[2018-07-18] MEDS: VANCOMYCIN 0.75 GM in IV D5W 250 ML IV SCH (21:14)
--- NOTE | 2018-07-18 21:38 | NUR ---
RECEIVED PT TRACH WITH BIVONA 6 CUFFLESS ON [facility] VENT. NO RESP DISTRES. PT TOLERATING VENT SETTINGS. SX'D FOR SML AMT OF THIN WHITE SECRETIONS. VENT ALARMS SET AND AUDIBLE. AMBU BAG AT BEDSIDE. WILL CONTINUE TO MONITOR. Addendum: 07/18/18 at 2140 by YUSEF HA RT Amended: Links added.
[2018-07-19] VITALS: BP 138/71
[2018-07-19] MEDS: BLOOD SUGAR DIAGNOSTIC 1 EACH STRIP IN SCH ×5 (00:25→23:49)
[2018-07-19] MEDS: HYDROMORPHONE 1 MG/1 ML DISP.SYRIN IV PRN ×5 (02:08→20:29)
--- NOTE | 2018-07-19 02:24 | NUR ---
OWNER PROFESSIONAL ENGINEER NOTE PT WAS MEDICATED FOR PAIN DURING THE SHIFT. REPORT GIVEN TO LAKE GUADARRAMA FOR CONTINUE TO CARE.
--- NOTE | 2018-07-19 02:30 | NUR ---
UNIT AID NOTE: RECEIVED REPORT FROM ALYSE, VENT SETTINGS IN PLACE, NO ACUTE DISTRESS NOTED. WILL CONTINUE TO MONITOR.
[2018-07-19 04:05] VITALS: BP 138/71
[2018-07-19] MEDS: CEFTAZIDIME 1 G in IV D5W 50 ML IV SCH ×3 (04:46→20:05)
--- NOTE | 2018-07-19 06:10 | NUR ---
EXECUTIVE KITCHEN MANAGER NOTE: PATIENT RESTING IN BED, NO ACUTE DISTRESS NOTED. BREATHING EVEN AND UNLABORED, NO SOB NOTED. VENT SETTING IN PLACE. PICC LINE TO BERNA IN PLACE. MARIE CATHETER DRAINED 1100ML OF CLEAR YELLOW URINE. ILEOSTOMY IN PLACE, DRAINING BROWN LIQUID STOOL. G-TUBE IN PLACE, CLAMPED AT THIS TIME, HOB ELEVATED. PATIENT BLOOD SUGAR LEVEL 93MG/DL, NO INSULIN NEEDED PER SLIDING SCALE, NO S/S OF HYPO/HYPERGLYCEMIA NOTED. BED LOCKED AND IN LOWEST POSITION, CALL LIGHT IN REACH. WILL ENDORSE TO DAY NURSE TO CONTINUE WITH PLAN OF CARE.
[2018-07-19 06:39] LABS: BASOPHILS % (AUTO) 0.2 % (0.0-2.0); HEMATOCRIT 35 % (39-51); LYMPHOCYTES # (AUTO) 0.9 /CMM (0.8-4.8); LYMPHOCYTES % (AUTO) 7.7 % (20.0-44.0); MEAN CORPUSCULAR HGB CONC 32 g/dl (31.0-36.0); MEAN CORPUSCULAR VOLUME 89 fL (80-96); MONOCYTES # (AUTO) 0.9 /CMM (0.1-1.30); MONOCYTES % (AUTO) 7.2 % (2.0-12.0); NEUTROPHILS % (AUTO) 83.9 % (43.0-81.0); PLATELET COUNT (AUTO) 241 /CMM (150-450)
[2018-07-19 06:46] LABS: CALCIUM, SERUM 7.6 mg/dL (8.5-10.1); CREATININE 0.4 mg/dL (0.6-1.3); MAGNESIUM 1.6 mg/dL (1.8-2.4)
--- NOTE | 2018-07-19 07:15 | NUR ---
GLUING MACHINE OPERATOR ELECTRONIC OPENING NOTES RECEIVED PT LAYING IN BED, WITH HOB ELEVATED, PT IS ALERT AND ORIENTED X4, PT IS ON TRACH BIVONE 6, SATURATING WELL, RR EVEN AND UNLABORED, NO SOB NOTED, IV SITES ARE INTACT TO R WRIST 24G AND BERNA PICC LINE, NO INFILTRATION NOTED, DRESSING KEPT CLEAN AND DRY, GTUBE IN PLACE, ILEOSTOMY INTACT, SITE IS A LITTLE RUPTURED AND PINK, FC IS IN PLACE, URINE CLEAR AND YELLOW, BED LOCKED AND LOW, CALL LIGHT WITHIN REACH, WILL MONITOR THROUGHOUT SHIFT FOR CONTINUITY OF CARE.
[2018-07-19 08:00] VITALS: BP 149/78
[2018-07-19] MEDS: PANTOPRAZOLE 40 MG VIAL IV SCH ×2 (08:23→20:05)
[2018-07-19] MEDS: POTASSIUM CHLORIDE 20 MEQ TAB.PRT.SR PO SCH ×3 (09:30→12:18)
--- NOTE | 2018-07-19 10:00 | NUR ---
GLOVE OPERATOR NOTES MARKETING DEVELOPMENT MANAGER CHELLY,GI SEEN AND ASSESSED THE PT AND ORDERED TO CHANGE CLEAR LIQUID TO REGULAR DIET.NEW ORDERS NOTED AND CARRIED OUT.
[2018-07-19] MEDS: Magnesium 1GM/D5W 100ML PREMIX 100 ML IV SCH ×2 (10:14→11:28)
[2018-07-19 12:00] VITALS: BP 149/88
[2018-07-19] MEDS: IV 1/2NS 1000 ML 1,000 ML IV PRN (15:13)
[2018-07-19 16:00] VITALS: BP 142/77
--- NOTE | 2018-07-19 18:33 | NUR ---
RT NOTE: PT. 33 Y OLD MALE RECEIVE'D @0700 PT. AWAKE AND ALERT, TRACH BIVONA # 6 CUFLESS ON VENT. WITH NOTED SETTINGS, NO RESP DISTRESS NOTED. PT TOLERATING VENT SETTINGS. EQUAL CHEST RISE NOTED. SX'D FOR MODERATE AMT OF THICK YELLOW SECRETIONS. VENT ALARMS SET AND AUDIBLE. AMBU BAG AT BEDSIDE. VENT PLUGGED INTO RED OUTLET. TRACH IS SECURE, CUFF PROFESSOR OF CRIMINAL JUSTICE. WILL CONTINUE TO MONITOR. REPORT WILL PASS TO PM SHIFT. Addendum: 07/19/18 at 1834 by CHRIST CHEN RT Amended: Links added.
--- NOTE | 2018-07-19 18:44 | NUR ---
KERFER MACHINE OPERATOR CLOSING NOTES PT RESTING IN BED, WITH HOB ELEVATED, PT ALERT AND ORIENTED X4, ON TELE SINUS RHYTHM NOTED, ON TRACH BIVONE 6, SATURATING WELL, RR EVEN AND UNLABORED, NO SOB NOTED, IV SITES ARE INTACT TO R THUMB 24G AND BERNA PICC LINE, NO INFILTRATION NOTED, DRESSING KEPT CLEAN AND DRY, GTUBE IN PLACE AND CLAMPED, ILEOSTOMY INTACT, DRAINING, SITE IS CLEAN AND NO SWELLING NOTED, FC IS IN PLACE, URINE CLEAR AND YELLOW, BED LOCKED AND LOW, CALL LIGHT WITHIN REACH, VITAL SIGNS CHECKED AND ARE WNL, WILL ENDORSE TO MANAGER CREATIVE NURSE FOR CONTINUITY OF CARE.
[2018-07-19 20:00] VITALS: BP 149/96
--- NOTE | 2018-07-19 20:00 | NUR ---
INFORMATION SECURITY SYSTEMS INSTRUCTOR - NOTES - RECEIVED PT LAYING IN BED, WITH HOB ELEVATED, PT IS ALERT AND ORIENTED X4, PT HAS TRACH BIVONA 6, SATURATING WELL, RR EVEN AND UNLABORED, NO SOB NOTED, IV SITES ARE INTACT TO R THUMB 24G AND BERNA PICC LINE, NO INFILTRATION NOTED, DRESSING KEPT CLEAN AND DRY, GTUBE IN PLACE, ILEOSTOMY INTACT, FC IS IN PLACE, URINE CLEAR AND YELLOW, BED LOCKED AND LOW, CALL LIGHT WITHIN REACH, WILL MONITOR THROUGHOUT SHIFT FOR CONTINUITY OF CARE.
[2018-07-19] MEDS: VANCOMYCIN 0.75 GM in IV D5W 250 ML IV SCH (20:05)
[2018-07-20] VITALS: BP 128/93
[2018-07-20] MEDS: HYDROMORPHONE 1 MG/1 ML DISP.SYRIN IV PRN ×6 (00:26→21:45)
[2018-07-20 04:00] VITALS: BP 127/78
[2018-07-20] MEDS: CEFTAZIDIME 1 G in IV D5W 50 ML IV SCH ×3 (05:26→21:43)
[2018-07-20] MEDS: BLOOD SUGAR DIAGNOSTIC 1 EACH STRIP IN SCH ×3 (05:26→17:15)
[2018-07-20] MEDS: IV 1/2NS 1000 ML 1,000 ML IV PRN (05:27)
[2018-07-20 06:37] LABS: CALCIUM, SERUM 7.8 mg/dL (8.5-10.1); CREATININE 0.3 mg/dL (0.6-1.3); MAGNESIUM 1.9 mg/dL (1.8-2.4); POTASSIUM 3.7 mmol/L (3.5-5.1)
--- NOTE | 2018-07-20 07:10 | NUR ---
RN INITIAL NOTES: Rec'd pt awake on bed, not in any distress, A/O x 3, able to speak & express. On MV via trach, sating at 100%. On telemonitor, SR 88bpm. Has GT clamped, pt on regular diet. Has ileostomy patent & intact. Has BERNA PICC w/ /2 NS x 50cc/hr infusing well. Has FC draining to BSB w/ adequate UOP. Safety precautions in place. Bed in lowest & locked pos. Call light w/in reach. Will cont to monitor & atten pt needs.
[2018-07-20 08:00] VITALS: BP 132/83
--- NOTE | 2018-07-20 08:06 | NUR ---
RT PATIENT REC'D TRACHED ON [facility] VENT WITH ORDERED SETTINGS NITHYA WELL. VENT ALARMS CHECKED + AUDIBLE. CUFF PRESSURE CHECKED GUTTER HANGER. PATIENT SUCTIONED WITH MOD MARIAHT OF JAZMINE SEMITHICK SECRETIONS. B/S DIM COARSE. AMBU BAG AT [facility]. VENT PLUGGED ONTO RED OUTLET. Addendum: 07/20/18 at 1052 by GURPREET CROUCH RT Amended: Links added.
[2018-07-20] MEDS: PANTOPRAZOLE 40 MG VIAL IV SCH ×2 (09:06→21:44)
[2018-07-20 10:49] LABS: ABG OXYGEN SATURATION 97.4 % (92.0-98.5); ABG PCO2 33.5 mmHg (35.0-45.0); ABG PH 7.395 (7.350-7.450); ABG PO2 103.6 mmHg (75.0-100.0); AaDO2 56.5 mmHg; COHb 0.3 % (0.5-1.5); MetHb 0.9 % (0.0-1.5); O2Hb 96.2 % (94.0-97.0); PEEP,BG 0 cm H2O; SITE, ABG Right Radial; VT, ABG 500 mL
--- NOTE | 2018-07-20 11:11 | NUR ---
CHANDRIKA relayed to Dr. Torrez w/ no new orders.
[2018-07-20 12:00] VITALS: BP 150/78
[2018-07-20] MEDS: INSULIN REGULAR, HUMAN 100 UNIT/ML 3 ML VIAL SQ PRN ×2 (12:17→17:15)
[2018-07-20 16:00] VITALS: BP 134/76
--- NOTE | 2018-07-20 18:46 | NUR ---
RN CLOSING NOTES: No acute changes noted w/in shift. Pt remains A/O x 3 able to express needs, communicative. Pt tolerated MV settings via trach. SR on telemonitor. GT still clamped, tolerated regular diet. Ileostomy kept patent & intact. BERNA PICC kept patent & intact w/ no s/sx of infection/infiltration noted w/ 1/2 NS x 50cc/hr infusing well. FC kept patent & intact draining to BSB w/ adequate UOP. Safety precautions kept in place at all times. Bed in lowest & locked pos. Call light w/in reach. Will endorse to PM RN for MARY.
--- NOTE | 2018-07-20 19:38 | NUR ---
PATIENT RECEIVED ON AC @ 28%. PATIENT AWAKE/ALERT. [place] [address] AMBU BAG/BACK UP TRACH @ BEDSIDE. SX DONE, SMALL THICK WHITE SECRETIONS NOTED. ALARMS ON AND AUDIBLE. VENT PLUGGED INTO RED OUTLET. PATIENT STABLE AT THIS TIME. WILL MONITOR T/O SHIFT. Addendum: 07/20/18 at 1938 by OLLIE WHITAKER RT Amended: Links added. Addendum: 07/21/18 at 0206 by OLLIE WHITAKER RT BIVONA CUFFLESS TRACH IN PLACE.
[2018-07-20 20:00] VITALS: BP 146/60
--- NOTE | 2018-07-20 20:00 | NUR ---
RN NOTES: Received pt a/ox4, awake on bed, not in any distress, able to speak & express. On trach with spo2 sating at 100%. On telemonitor, St on surveillance monitor. Has GT clamped, pt on regular diet. Has ileostomy patent & intact. Has BERNA PICC w/ 1/2 NS x 50cc/hr infusing well. Has FC draining to BSB . Safety precautions in place. Bed in lowest & locked pos. Call light w/in reach. Will cont to monitor & atten pt needs.
--- NOTE | 2018-07-20 21:14 | NUR ---
RN NOTES PATIENT HAS BEEN REFUSING TO BE TURNED AND REPOSITIONED, AND ALSO REFUSING BODY CHECK AT THIS TIME WITNESSED BY HERNESTO SMYTH. WILL ASK THE PT AGAIN . ALL RISKS AND BENEFITS AR EXPLAINED TO THE PATIENT.
[2018-07-20] MEDS: NITROFURANTOIN/NITROFURAN MAC 100 MG CAPSULE PO SCH (21:44)
[2018-07-21] MEDS: IV 1/2NS 1000 ML 1,000 ML IV PRN (00:35)
[2018-07-21] MEDS: BLOOD SUGAR DIAGNOSTIC 1 EACH STRIP IN SCH ×3 (00:35→11:53)
[2018-07-21 02:00] VITALS: BP 111/46
[2018-07-21 04:00] VITALS: BP 133/84
--- NOTE | 2018-07-21 04:00 | NUR ---
RN NOTES PATIENT IS STILL REFUSING TO BE TURNED AND REPOSITIONED, AND ALSO REFUSING BODY CHECK WITNESSED BY HERNESTO SMYTH. PATIENT SAID THAT HE IS IN PAIN AND DOES NOT WANT TO BE MOVED MAIK THOUGH PAIN MEDICATION WAS GIVEN 10 MIN. AGO. ALL RISKS AND BENEFITS AR EXPLAINED TO THE PATIENT.
[2018-07-21] MEDS: CEFTAZIDIME 1 G in IV D5W 50 ML IV SCH ×2 (05:20→13:19)
[2018-07-21] MEDS: HYDROMORPHONE 1 MG/1 ML DISP.SYRIN IV PRN ×2 (05:37→09:05)
--- NOTE | 2018-07-21 07:00 | NUR ---
JOSEY RN NOTES RECEIVED PATIENT FROM CAMERA MAKER RN LYING IN BED, ALERT W/ NO C/O OF PAIN. PATIENT ON VENT, TRACHEA CLEAN DRY AND INTACT. A/O X 3, V/S STABLE, HR 91SR. SKIN CLEAN, DRY AND INTACT. PICC ON BERNA CLEAN, DRY AND PATENT, 1/2 NS RUNNING AT 50CC/HOUR. PT ON ISOLATION FOR C-DIFF. G-TUBE CLEAN DRY AND INTACT. FLEXISEAL TUBE DRAINING LIGHT BROWN, LOOSE. . SAFETY MEASURES IN PLACE. WILL CONTINUE TO MONITOR.
[2018-07-21 07:06] LABS: BASOPHILS % (AUTO) 0.3 % (0.0-2.0); EOSINOPHILS % (AUTO) 2.1 % (0.0-6.0); HEMATOCRIT 34 % (39-51); HEMOGLOBIN 11.1 g/dL (13.5-17.5); LYMPHOCYTES # (AUTO) 0.9 /CMM (0.8-4.8); LYMPHOCYTES % (AUTO) 9.9 % (20.0-44.0); MEAN CORPUSCULAR HGB CONC 33 g/dl (31.0-36.0); MEAN CORPUSCULAR VOLUME 87 fL (80-96); MONOCYTES # (AUTO) 0.9 /CMM (0.1-1.30); MONOCYTES % (AUTO) 9.4 % (2.0-12.0); NEUTROPHILS # (AUTO) 7.1 /CMM (1.8-8.9); NEUTROPHILS % (AUTO) 78.3 % (43.0-81.0); PLATELET COUNT (AUTO) 239 /CMM (150-450)
[2018-07-21 07:19] LABS: CALCIUM, SERUM 7.7 mg/dL (8.5-10.1); CREATININE 0.3 mg/dL (0.6-1.3); MAGNESIUM 1.5 mg/dL (1.8-2.4); PHOSPHORUS 3.3 mg/dL (2.5-4.9); POTASSIUM 3.2 mmol/L (3.5-5.1)
[2018-07-21 08:00] VITALS: BP 129/50
[2018-07-21] MEDS: NITROFURANTOIN/NITROFURAN MAC 100 MG CAPSULE PO SCH (08:20)
[2018-07-21] MEDS: PANTOPRAZOLE 40 MG VIAL IV SCH (08:20)
[2018-07-21] MEDS ORDERED: CEFT1VIA7 IV (10:30)
[2018-07-21] MEDS ORDERED: POTASSIUM CHLORIDE 20 MEQ TAB.PRT.SR PO SCH (10:30)
[2018-07-21] MEDS ORDERED: NITR100C6 PO (10:30)
[2018-07-21] MEDS ORDERED: POTASSIUM CHLORIDE 20 MEQ POWDER PACKET PO SCH (10:30)
[2018-07-21] MEDS: Magnesium 1GM/D5W 100ML PREMIX 100 ML IV SCH ×2 (10:59→11:53)
[2018-07-21 12:00] VITALS: BP 119/71
--- NOTE | 2018-07-21 15:00 | NUR ---
RN NOTES REPORT GIVEN TO SHANICE GUADARRAMA AT [facility] , Nathan FRIEDMAN H/L DISCONTINUED.
[2018-07-21 16:00] VITALS: BP 133/58
--- NOTE | 2018-07-21 16:45 | NUR ---
RN NOTES REPORT GIVEN TO EMT, PT LEFT THE FLOOR TO [facility] ACCOMPANIED BY EMT IN STABLE CONDITION .
== END 2018-07-21 16:45 | DRG 252 ==
LOC: ER 17:10 → TELE1 21:21
PROVIDERS: ADMIT Nurse Practitioner Acute Care; ATTEND Internal Medicine
DX: K94.19 Other complications of enterostomy (principal); J96.20 Acute and chronic respiratory failure, unspecified whether with hypoxia or hypercapnia; J69.0 Pneumonitis due to inhalation of food and vomit; A41.9 Sepsis, unspecified organism; J95.851 Ventilator associated pneumonia; Z99.11 Dependence on respirator [ventilator] status; G71.01 Duchenne or Becker muscular dystrophy; R53.2 Functional quadriplegia; N39.0 Urinary tract infection, site not specified; E87.2 Acidosis; E83.42 Hypomagnesemia; Z79.899 Other long term (current) drug therapy; E87.5 Hyperkalemia; R13.10 Dysphagia, unspecified; Y83.9 Surgical procedure, unspecified as the cause of abnormal reaction of the patient, or of later complication, without mention of misadventure at the time of the procedure; Y82.9 Unspecified medical devices associated with adverse incidents; Y92.099 Unspecified place in other non-institutional residence as the place of occurrence of the external cause; Z98.1 Arthrodesis status; Z87.440 Personal history of urinary (tract) infections; Z68.30 Body mass index [BMI] 30.0-30.9, adult; J98.11 Atelectasis; R73.9 Hyperglycemia, unspecified; D64.9 Anemia, unspecified; Y84.9 Medical procedure, unspecified as the cause of abnormal reaction of the patient, or of later complication, without mention of misadventure at the time of the procedure; B96.5 Pseudomonas (aeruginosa) (mallei) (pseudomallei) as the cause of diseases classified elsewhere; E44.1 Mild protein-calorie malnutrition; E87.6 Hypokalemia; I10 Essential (primary) hypertension; E66.9 Obesity, unspecified; K43.5 Parastomal hernia without obstruction or gangrene; N20.0 Calculus of kidney; Y95 Nosocomial condition
CPT/HCPCS: 31720; 36415; 36569; 36600; 71045-TC; 74250-TC; 80048-TC; 80061-TC; 80076-TC; 80202-TC; 81000-TC; 82803-TC; 82962-TC; 83605-TC; 83690-TC; 83735-TC; 84100-TC; 84484-TC; 85025-TC; 86850-TC; 86921-TC; 87040-TC; 87081-TC; 87086-TC; 87186-TC; 93971-TC; 94002-TC; 94003-TC; 94760-TC; 94762-TC; 99082-TC; A4216; C1751; C9113; G0378; J0713; J1170; J1815; J2405; J2543; J2997; J3370; J3475; J3480; J3490; J7030; J7040; J7050; J7060; P9016-BL; Q9963